=== PATIENT | female | born 2000 | race African-American/Black ===

== ENCOUNTER 2023-06-11 07:08 | Emergency (ER) | payer SELFPAY ==
[2023-06-11] MEDS ORDERED: Ibuprofen 200 MG TAB ONE ×2 (07:26)
== END 2023-06-11 07:30 | disposition home or self-care (01) ==
LOC: ERS 07:08
DX: H66.91 Otitis media, unspecified, right ear (principal); F17.210 Nicotine dependence, cigarettes, uncomplicated
CPT/HCPCS: 99283